=== PATIENT | female | born 1950 | race Hispanic/Latino ===

== ENCOUNTER 2017-03-18 09:09 | Outpatient (CLI) | payer BC ==
--- NOTE | 2017-03-21 07:19 | Vascular Lab Report ---
LOWER EXTREMITY ARTERIAL DUPLEX: REASON FOR EXAM: Claudication. COMMENTS ON THE RIGHT: Triphasic waveforms are seen proximally. Biphasic waveforms are seen distally. No significant velocity gradients are identified. No focal significant plaque is identified. Findings are consistent with normal perfusion. Findings are consistent with the ability to heal distal wounds. COMMENTS ON THE LEFT: Triphasic waveforms are seen proximally. Biphasic waveforms are seen distally. No significant velocity gradients are identified. No focal significant plaque is identified. Findings are consistent with normal perfusion. Findings are consistent with the ability to heal distal wounds. IMPRESSION: RIGHT: Essentially normal arterial flow. LEFT:Essentially normal arterial flow.
== END 2017-03-18 09:10 | disposition home or self-care (01) ==
LOC: VAS 09:09
DX: I73.9 Peripheral vascular disease, unspecified (principal)
CPT/HCPCS: 93925

== ENCOUNTER 2018-02-22 11:36 | Outpatient (CLI) | payer BC ==
--- NOTE | 2018-02-22 17:25 | XRay Report ---
FINAL REPORT PROCEDURE: XR BONE SURVEY METASTATIC TECHNIQUE: Radiographs of the axial and appendicular skeleton, including lateral skull, lateral cervical spine, AP ribs, AP thoracic spine, AP and lateral lumbar spine, AP pelvis, PA and lateral chest, and AP views of the long bones. HISTORY: Dysproteinemia. Paraproteinemia. COMPARISON: No prior studies are available for comparison. FINDINGS: Fracture(s): None. Osteoblastic lesions: None. Osteolytic lesions: Subtle lucency in the skull. On limited lateral view consider subtle lucency about the mandibular ramus. Joint space(s): Normal. Soft tissues: Aortic tortuosity and mild calcification. Cardiomegaly. Moderate atherosclerosis. Bone mineralization: Osteopenia. Multilevel degenerative changes of the spine. Diffuse idiopathic skeletal hyperostosis. Slight wedge compression in the mid upper/mid thoracic spine. Mild thoracic kyphosis. Ossification of the posterior supraspinous ligament. Geodes/subchondral cysts of the bilateral humeri. Mild narrowing of the bilateral acromioclavicular joints. Moderate tricompartmental narrowing at the bilateral knees with osteophytes. Mild narrowing of the bilateral hip and sacroiliac joints. Subtle subcentimeter densities about the symphysis. Subtle lucencies about the bilateral L5 transverse process is felt to be chronic/degenerative. Foreign bodies: None. IMPRESSION: Subtle lucency in the skull and possibly the mandibular ramus, could be related to osteopenia and limited evaluation. Recommend further evaluation including bone scan for further characterization if there is continued clinical concern for subtle lytic lesion considering patient's history. Osteopenia with degenerative changes. Diffuse idiopathic skeletal hyperostosis. Subtle subcentimeter densities about the symphysis likely chronic/degenerative and/or bone islands. Aortic tortuosity and mild calcification. Cardiomegaly.
== END 2018-02-22 11:37 | disposition home or self-care (01) ==
LOC: XRAY 11:36
PROVIDERS: ATTEND Internal Medicine Hematology & Oncology
DX: M67.88 Other specified disorders of synovium and tendon, other site (principal); I51.7 Cardiomegaly; I70.90 Unspecified atherosclerosis; M85.88 Other specified disorders of bone density and structure, other site; M40.294 Other kyphosis, thoracic region; M48.10 Ankylosing hyperostosis [Forestier], site unspecified; M47.899 Other spondylosis, site unspecified; E88.09 Other disorders of plasma-protein metabolism, not elsewhere classified; I48.91 Unspecified atrial fibrillation; I25.10 Atherosclerotic heart disease of native coronary artery without angina pectoris; E11.9 Type 2 diabetes mellitus without complications; E11.69 Type 2 diabetes mellitus with other specified complication; N18.4 Chronic kidney disease, stage 4 (severe); Z95.5 Presence of coronary angioplasty implant and graft
CPT/HCPCS: 77074